=== PATIENT | male | born 1950 | race Caucasian/White ===

== ENCOUNTER 2024-08-11 09:52 | Emergency (ER) | payer OTHER, SELFPAY ==
--- NOTE | ~2024-08-11 | XR_ITS ---
EXAMINATION: XR wrist RT min 3V DATE: 08/11/2024 10:09 INDICATION: Right wrist injury and pain. TECHNIQUE: 3 views of right wrist were obtained. COMPARISON: None. FINDINGS: Alignment is normal. No fracture. There is moderate osteoarthritis of first metacarpophalan geal joint and mild osteoarthritis of first carpometacarpal joint. IMPRESSION: 1. Polyarticular osteoarthritis. Reviewed, dictated and finalized at location A.
[2024-08-11 09:52] VITALS: BP 127/76; PULSE 75; RESP 17; TEMP 36.2; O2SAT 95
--- NOTE | 2024-08-11 09:59 | ED.UPPEXIN ---
HPI - Extremity Injury (Upper) General Chief Complaint: Extremity Injury, Upper Stated Complaint: right arm injury Source: patient Mode of arrival: ambulatory Limitations: no limitations History of Present Illness HPI narrative: 74 year old male presents to the Emergency Department complaining of right wrist injury and pain. Patient states he was cleaning trash can and rolling and wheels got caught and he fell, twisting his right wrist and scraping his left forearm. Last tetanus a year ago. Denies any other injury. MD complaint: injury to: right and wrist Onset (ago): minute(s) Other Extremity Injury: Left: forearm (abrasion) Place: home Severity: moderate Relieving factors: none Exacerbating factors: movement of extremity Context: fall Associated symptoms: denies other symptoms Treatments prior to arrival: cold therapy Related Data Home Medications Medication Instructions Recorded Confirmed amlodipine 10 mg tablet 10 mg PO DAILY 08/11/24 08/11/24 atorvastatin 40 mg tablet 40 mg PO DAILY 08/11/24 08/11/24 diazepam 10 mg tablet 5 mg PO HS 08/11/24 08/11/24 irbesartan 300 mg tablet 300 mg PO DAILY 08/11/24 08/11/24 Allergies Allergy/AdvReac Type Severity Reaction Status Date / Time GINA Inhibitors AdvReac Unknown Verified 08/11/24 09:54 Review of Systems Review of Systems: All systems reviewed & are unremarkable except as noted in HPI and below Constitutional: Constitutional: Reports as per HPI Eyes: Eyes: Reports as per HPI ENT: Reports system reviewed and no additional complaints, except as documented Cardiovascular: Cardiovascular: Reports as per HPI Respiratory: Respiratory: Reports as per HPI Gastrointestinal: Gastrointestinal: Reports as per HPI Genitourinary: Genitourinary: Reports no additional male genitourinary complaints Musculoskeletal: Musculoskeletal: Reports no additional musculoskeletal complaints and Reports arthralgias Integumentary/Breasts: Skin/Breast: Reports system reviewed and no additional complaints, except as docu Neurologic: Reports system reviewed and no additional complaints, except as documented Exam Const: General: healthy appearing Nutritional Appearance: well nourished Orientation/consciousness: patient oriented x3 Limitations: no limitations HENMT: Head: normal to inspection Ears: external ears normal Face/Nose/Sinus: Normal external nose present Face and sinus: normal facial exam Eyes: Pupils: Equal, round and reactive pupils present EOM: EOMs intact bilaterally Direct Ophthalmoscopy: no photophobia Neck: Neck: normal visual inspection Chest: Chest palpation & inspection: normal inspection of the chest Resp: Effort & Inspection: normal respiratory effort Cardio: Rate: regular rate GI: Inspection: non-distended GI Palp: No Tenderness to palpation present (GI) Skin: General skin exam: normal color Other: linear superficial abrasion proximal lateral left upper forearm, no active bleeding Neuro: General: patient oriented x3 Cranial nerves: Yes Nystagmus not present Speech: normal speech Gait exam (Neuro): Normal gait present Other: grossly normal Extrem: Other: Right Wrist: no obvious deformity, erythema, edema, contusion, ecchymosis. Tender to palpation distal radius /ulna. Full ROM. NV intact. Psych: Mental Status: mental status grossly normal Course Course Emergency Course: 74 y/o male presents to the ED c/o right wrist injury and pain. Patient fell injuring wrist this morning. PE: tender to palpation distal radius/ulna, ful ROM, NV intact XR R Wrist: osteoarthritis, no fx Tx: velcro wrist splint Instructions Discharge Plan Discharge Clinical Impression: Sprain and strain of wrist Patient Disposition: Home, Self-Care Condition: Stable Instructions: Wrist Sprain (ED) Additional Instructions: Velcro wrist splint for comfort Ice and Elevate for swelling Tylenol, Ibuprofen and Aleve as needed Fol
[2024-08-11 10:34] VITALS: BP 127/76; PULSE 75; RESP 17; TEMP 36.2; O2SAT 95
== END 2024-08-11 10:34 | disposition home or self-care (01) ==
LOC: CHSED 10:31
PROVIDERS: Emergency Provider Emergency Medicine; PCP Family Medicine
DX: S63.501A Unspecified sprain of right wrist, initial encounter (principal); S66.911A Strain of unspecified muscle, fascia and tendon at wrist and hand level, right hand, initial encounter; Z79.899 Other long term (current) drug therapy; W01.0XXA Fall on same level from slipping, tripping and stumbling without subsequent striking against object, initial encounter
CPT/HCPCS: 29125; 73110; 99283